=== PATIENT | female | born 1975 | race Native Hawaiian/Other Pacific Islander ===

== ENCOUNTER → 2016-11-13 | Outpatient (CLI) | payer BC ==
[~2016-11-13] MED LIST: IBUP800T23 PO; ULTR50TA5 PO
[2016-11-13 13:03] LABS: BACTERIA, URINE FEW /hpf; BLOOD, URINE SMALL (NEG); GLUCOSE,URINE NEG (NEG); KETONE, URINE NEG (NEG); MUCUS URINE FEW /lpf (OCC); NITRITE,URINE NEG (NEG); SQUAMOUS EPITHELIAL CELL URINE 2 /hpf (0-5); URINE COLOR YELLOW (YELLW/STRAW)
== END ==
LOC: CLAB 12:11
PROVIDERS: ATTEND Obstetrics & Gynecology
DX: R35.0 Frequency of micturition (principal); R30.9 Painful micturition, unspecified; R39.15 Urgency of urination; B96.20 Unspecified Escherichia coli [E. coli] as the cause of diseases classified elsewhere; B95.1 Streptococcus, group B, as the cause of diseases classified elsewhere
CPT/HCPCS: 81001; 86403; 87077; 87086; 87186

== ENCOUNTER 2016-11-23 15:39 | Emergency (ER) | payer BC ==
[~2016-11-23] VITALS: Ht 170.2 cm; Wt 68.0 kg
[2016-11-23 15:40] VITALS: BP 120/70; PULSE 79; RESP 14; TEMP 99; O2SAT 99
--- NOTE | 2016-11-23 16:05 | RADRPT ---
EXAM DATE/TIME: 11/23/2016 15:57 [place] COMPARISON: No previous studies available for comparison. INDICATIONS : Left ankle pain after fall today. Patient tripped over a ramp. Pain on medial side. MEDICAL HISTORY : None. SURGICAL HISTORY : None. ENCOUNTER: Initial ACUITY: 1 day PAIN SCORE: 10/10 LOCATION: Left ankle. FINDINGS: Three view exam was performed of the left ankle. The bony structures are in normal alignment. No ev idence of fracture, dislocation, or soft tissue swelling. The ankle mortise is intact. No radiopaqu e foreign bodies are seen. Bony mineralization is normal. CONCLUSION: Negative for fracture or dislocation. Follow up in 7-10 days is suggested if symptoms persist. Michael Fitzgerald MD FACR on November 23, 2016 at 16:03 Board Certified Radiologist. This report was verified electronically.
[2016-11-23] MEDS ORDERED: IBUP800T23 PO (16:13)
[2016-11-23] MEDS ORDERED: ULTR50TA5 PO (16:13)
--- NOTE | 2016-11-23 16:13 | PD ---
HPI . Left ankle injury Chief Complaint: Injury Time Seen by Provider: 16:04 Travel History International Travel<30 days: No Contact w/Intl Traveler<30days: No Traveled to known affect area: No History of Present Illness HPI This patient presents with a left ankle injury. This occurred about 9 AM. She states that it did not initially hurt but it has become more and more painful since then. Exacerbated by movement and standing on it. She has treated it with ice and Aspercreme. She rates her pain 10/10. PFSH Past Medical History Diminished Hearing: No ?: Not LMP: OCTOBER 2017 Social History Alcohol Use: No Tobacco Use: No Substance Use: No Allergies-Medications (Allergen,Severity, Reaction): Coded Allergies: No Known Allergies (Unverified , 11/23/16) Review of Systems Except as stated in HPI: all other systems reviewed are Neg Musculoskeletal: Positive: Arthralgias, Limited ROM Physical Exam Narrative GENERAL: Awake and alert and in no acute distress. SKIN: Skin is intact. Minimal bruising. HEAD: NC/AT. EYES: EOMI. NECK: FROM without pain. RESPIRATORY: nonlabored. MUSCULOSKELETAL: Mild swelling in the left ankle with diffuse tenderness. The ankle is stable. Achilles tendon is intact. Distally neurovascularly intact. NEUROLOGICAL: Nonfocal. PSYCHIATRIC: Normal mood and affect. Data Data Last Documented VS Vital Signs Date Time Temp Pulse Resp B/P (MAP) Pulse Ox O2 Delivery O2 Flow Rate FiO2 11/23/16 15:40 99.0 79 14 120/70 (87) 99 Orders Orders Ankle, Complete ([id number]) (11/23/16 15:47) [facility] Medical Decision Making Medical Screen Exam Complete: Yes Emergency Medical Condition: Yes Differential Diagnosis Differential diagnosis of extremity trauma includes but is not limited to fracture, sprain or strain, dislocation, contusion Narrative Course Patient presents for evaluation of acute ankle injury. Her x-rays negative for fracture. She will be treated for a sprained ankle with RICE. Diagnosis Primary Impression: Left ankle sprain Qualified Codes: S93.402A - Sprain of unspecified ligament of left ankle, initial encounter Patient Instructions: Ankle Sprain (ED), General Instructions Med/Other Pt SpecificInfo: Prescription(s) given Scripts Tramadol (Ultram) 50 Mg Tab 50 MG PO Q4H Y for PAIN, #12 TAB 0 Refills Prov: Jayshree Ramirez MD 11/23/16 Ibuprofen (Ibuprofen) 800 Mg Tab 800 MG PO Q8H Y for Pain/Inflammation, #60 TAB 0 Refills Prov: Jayshree Ramirez MD 11/23/16 Disposition: 01 DISCHARGE HOME Condition: Stable Jayshree Ramirez MD Nov 23, 2016 16:13
== END 2016-11-23 16:50 | disposition home or self-care (01) ==
LOC: NEPD 15:39
DX: S93.402A Sprain of unspecified ligament of left ankle, initial encounter (principal); X58.XXXA Exposure to other specified factors, initial encounter
CPT/HCPCS: 73610; 99283; E0113